=== PATIENT | female | born 1995 | race African-American/Black ===

== ENCOUNTER 2019-05-27 10:24 | Observation (INO) | payer OTHER ==
[~2019-05-27] VITALS: Ht 152.4 cm; Wt 70.8 kg
[2019-05-27 11:08] LABS: BILIRUBIN,URINE NEGATIVE (NEG); CLARITY,URINE CLEAR; COLOR,URINE YELLOW; NITRITE,URINE NEGATIVE (NEG); PH,URINE 7.5; PROTEIN,URINE NEGATIVE (NEG-TRACE)
[2019-05-27 11:20] LABS: RBC,URINE 0 /HPF (0-2); SQUAMOUS EPITHELIAL CELL,UR FEW /LPF
[2019-05-27 11:21] LABS: BACTERIA,URINE MODERATE /HPF (0-FEW)
== END 2019-05-27 11:35 | disposition home or self-care (01) ==
LOC: 3 SO LND 10:24
PROVIDERS: ADMIT Specialist; ATTEND Specialist
DX: O48.0 Post-term pregnancy (principal); Z3A.40 40 weeks gestation of pregnancy
CPT/HCPCS: 81001; 87086; G0378; G0379; 59025